=== PATIENT | male | born 1960 ===

== ENCOUNTER 2024-04-04 08:43 | Outpatient (CLI) | payer BC, SELFPAY ==
--- NOTE | 2024-04-04 08:30 | RT.EKG_ITS ---
APPROVED REPORT Exam: Resting ECG Reason for Exam: CAD Patient Location: O HR:65 bpm ECG Measurements Heart Rate 65 AXIS VA 178 P 83 QRSd 99 QRS 89 QT 417 T 24 QTc 434 Conclusion Sinus rhythm...normal P axis, V-rate 50- 99 Borderline right axis deviation...QRS axis ( 81, 90)
== END 2024-04-04 08:44 | disposition home or self-care (01) ==
LOC: DI.CARD 08:44
PROVIDERS: Visit Provider Internal Medicine Cardiovascular Disease
DX: I25.10 Atherosclerotic heart disease of native coronary artery without angina pectoris (principal); R06.02 Shortness of breath
CPT/HCPCS: 93010

== ENCOUNTER 2024-05-23 01:47 | Outpatient (CLI) | payer BC, SELFPAY ==
--- NOTE | 2024-05-23 07:00 | DI.NM_ITS ---
APPROVED REPORT Exam: Pharmacologic Patient Location: Out-Patient Room/Bed: Stress Nurse: Sera Hills RN; Sara Nguyen RN Ordering Provider:EDEN PIERCE, Contact Number: BMI: 19.56 Baseline Rhythm: Sinus Rhythm Indications: dyspnea, CAD Medical History Medical History: DM2, IA, ileostomy in place, HTN, HLD, coronary arteriosclerosis Cardiac Medications: aspirin, atoravastatin, jardiance, lantus, metformin, metoprolol succinate, ntir oglycerin, flomax Allergies: house dust Cardiac Risk Factors: family hx, diabetes, HTN, HLD, CVD Previous Cardiac Procedures: s/p CABG x4, cardiac cath Pretest Chest Pain Characteristics: No chest pain Exercise History: Physically active Physical Disabilities: none Lung Sounds: Clear to auscultation Heart Sounds: Regular Stress Test Details Test: Pharmacologic stress testing performed using 0.4 mg of regadenoson per 5 mL given IV over 10 s econds. Reason for pharmacologic stress test: beta tonia. Nuclear Acquisition: Rest Tc-99m/Stress Tc-99m 1 day Rest Isotope: Tc-99m Sestamibi. Dose: 10.0 Date: 05/23/2024 Injection Time: 0840 Stress Isotope: Tc-99m Sestamibi. Dose: 30.0 Date: 05/23/2024 Injection Time: 1013 HR Resting HR Supine: 64 bpm Max Heart Rate (APMHR): 156.588298 bpm Resting HR Standin bpm Target HR (85% APMHR): 132.524774 bpm Max HR Achieved: 119 bpm % of APMHR: 76.28 Recovery HR: 84 bpm BP Resting BP Supine: 122/70 mmHg Resting BP Standin/74 mmHg Max BP: 122/70 mmHg Recovery BP: 114/70 mmHg ECG Resting ECG: Sinus Rhythm Ectopy: none Stress ECG: Sinus Tachycardia ST Change: Nondiagnostic low heart rate Arrhythmia: None Recovery ECG: Sinus Rhythm Recovery ST Change: Nondiagnostic low heart rate Recovery Arrhythmia: None Clinical Stress Symptoms: mild dizziness, mild SOB Angina Score: None Rate Pressure Product: [id number] Stress ECG Conclusion 1. Resting electrocardiogram was within normal limits 2. Patient underwent testing using pharmacologic stress with regadenoson 3. Peak heart rate achieved was 76% of maximal for age 4. The electrocardiographic portion of the test was nondiagnostic 5. See MPI report Stress Test Summary STAGE HR BP SpO2 Symptoms NOTES Supine 64 122/70 Standing 71 118/74 1 min post Lexiscan injection 101 120/68 mild SOB, mild dizziness 3 min post Lexiscan injection 106 116/60 6 min post Lexiscan injection 77 122/70 9 min post Lexiscan injection 84 114/70 all symptoms resolved MPI Conclusion Myocardial perfusion is normal. There is no ischemia or evidence of prior infarction Ejection fraction is 58% with normal wall motion Radiologist Interpretation Radiologist Interpretation by: Saul Francisco MD Interpretation Date/Time: 05/23/2024 15:57:54
[2024-05-23] MEDS: Regadenoson 0.4 MG/5 ML SYR IVP (10:13)
== END 2024-05-23 02:07 ==
LOC: DI 01:47
PROVIDERS: Visit Provider Internal Medicine Cardiovascular Disease
DX: I25.10 Atherosclerotic heart disease of native coronary artery without angina pectoris (principal); R06.02 Shortness of breath
CPT/HCPCS: 78452; 93017; J2785

== ENCOUNTER 2024-11-17 00:59 | Outpatient (CLI) | payer BC, SELFPAY ==
--- NOTE | 2024-11-17 07:15 | DI.MRI_ITS ---
Exam(s) MR UPPER JOINT LT WO EXAM: MR UPPER JOINT LT WO CLINICAL HISTORY: ? RTC TEAR,rotator cuff arthropathy,m12.812. TECHNIQUE: Multiplanar multisequence MRI was performed. COMPARISON: 27 April 2024 from [facility] FINDINGS: BONES: There is no fracture or contusion pattern. JOINTS:The acromioclavicular joint shows [id number] inferior spurring. The glenohumeral joint is normal. TENDONS: Supraspinatus: Thickening and high signal in the distal supraspinatus tendon consistent with severe t endinitis versus partial tear. Infraspinatus: Unremarkable. Subscapularis: Unremarkable. Teres Minor: Unremarkable. Biceps and [place]: Unremarkable. MUSCLES: Unremarkable. GLENOID LABRUM: Unremarkable on this noncontrast examination. SOFT TISSUES: Unremarkable. BURSAE: Subacromial and subdeltoid bursae shows a small amount of fluid. The subcoracoid bursa markel ws small amount of fluid she also extends along the anterior border of the subscapularis.. IMPRESSION: Severe tendinitis versus partial tear of the supraspinatus tendon. Degenerative changes of the AC bandar int. DATA REPOSITORY:
== END 2024-11-17 01:19 ==
LOC: DI 00:59
PROVIDERS: PCP Radiology Radiation Oncology; Visit Provider Student in an Organized Health Care Education/Training Program
DX: M12.812 Other specific arthropathies, not elsewhere classified, left shoulder (principal)
CPT/HCPCS: 73221

== ENCOUNTER 2024-12-21 02:07 | Outpatient (CLI) | payer BC, SELFPAY ==
--- NOTE | 2024-12-21 11:55 | DI.RAD_ITS ---
Exam(s) RF JOINT INJECTION FLUORO GUID EXAM: RF JOINT INJECTION FLUORO GUID CLINICAL HISTORY: L SHOULDER PAIN,FLUORO GUIDED INJ,M19.012,M12.812. The Patient has had persistent left shoulder pain. Noninvasive measures have been tried. To serve as both diagnostic and therapeu tic, an injection under fluoroscopy was recommended. The risks of the procedure were discussed with their Orthopedic provider and the patient elected to proceed. TECHNIQUE: 2D and realtime digital imaging was performed. CONTRAST MATERIAL: Water soluble contrast was utilized. COMPARISON: No exams were available for comparison FINDINGS: The Patient was greeted in the fluoroscopy room. The correct side was identified and the consent was reviewed with the patient and was signed. The patient was properly positioned on the fluoroscopy ta ble. The left shoulderwas then prepped and draped. The left shoulder injection starting point was i dentified by the bony landmarks and fluoroscopy. The skin and soft tissue in the tract of the inject ion was anesthetized with 1% Bupivacaine. A spinal needle was then inserted into the left shoulder j oint at the level of the glenohumeral joint under fluoroscopic guidance. A small amount of Omnipaque solution was injected to confirm intraarticular placement. Once confirmed, the left shoulder was in jected with 5cc of a solution containing 0.5% Bupivacaiine and 40 mg of Depo-Medrol. A bandaid was p laced on the injection site. The patient tolerated the procedure well and left the department in goo d condition. IMPRESSION: Successful left shoulder injection. RADIATION DOSE DELIVERED: Ka,r=1.82 mGy
[2024-12-21] MEDS: methylPREDNISolone ACETATE 40 MG/ML VIAL IJ (11:56)
[2024-12-21] MEDS: Normal Saline - Diluent 50 ML VIAL 8 ML IJ (11:56)
[2024-12-21] MEDS: Omnipaque 300 MG/ML 10 ML BTL 5 ML IJ (11:57)
[2024-12-21] MEDS: Bupivacaine 0.5% Pres-Free 10 ML VIAL IJ (11:58)
== END 2024-12-21 02:27 ==
LOC: DI 02:08
PROVIDERS: PCP Radiology Radiation Oncology; Visit Provider Student in an Organized Health Care Education/Training Program
DX: M12.812 Other specific arthropathies, not elsewhere classified, left shoulder (principal); M19.012 Primary osteoarthritis, left shoulder
CPT/HCPCS: 20610; 77002; J0665; J1010